=== PATIENT | male | born 1970 | race Caucasian/White ===

== ENCOUNTER 2016-06-11 15:36 | Emergency (ER) | payer OTHER ==
--- NOTE | 2016-06-11 16:20 | ED CLINICAL REPORT ---
Clinical Report - Physicians/Mid Levels Located Within [facility] [address] [place] [address] 06/11/2016 15:38 [id number] Time Seen: 15:49; upon arrival, initial patient contact, initial documentation, patient care assumed. Arrived- By private vehicle. Historian- patient. HISTORY OF PRESENT ILLNESS Chief Complaint: Injury to the left ring finger. The injury happened just prior to arrival. The patient sustained a burn (working on car, and battery zapped him, felt burn/shock go up arm threw rest of his body). Occurred at home. Patient is experiencing moderate pain. Patient denies injury to the head or neck. No other injury. REVIEW OF SYSTEMS No swelling, tingling, numbness, weakness or skin laceration. All systems otherwise negative, except as recorded above. PAST HISTORY See nurses notes. PROBLEMS: Shoulder pain. Neck Injury. Back Pain. --16:05 Anna Redd R.N. ADDITIONAL SURGERIES: Back Surgery. Neck Surgery. Shoulder Surgery. --16:05 Anna Redd R.N. The patient's dominant hand is the right. SOCIAL HISTORY Light tobacco smoker. History of occasional drug use: marijuana. Recently used drugs days ago. No alcohol use. No recent travel. Is a local resident. He lives with spouse. FAMILY HISTORY No significant family medical history. ADDITIONAL NOTES The nursing notes have been reviewed with agreement regarding the chief complaint, HPI, ROS, PMH and patient medications and allergies. PHYSICAL EXAM Vital Signs: 06/11/2016 16:00 BP: 157/97. HR: 68. RR: 20. O2 saturation: 100%. Temp: 98.7 F. Pain level now: 8/10. Have been reviewed as abnormal and appear to be correct. Hypertensive. Heart rate normal. Respiratory rate normal. Temperature normal. Oxygen saturation normal. Appearance: Alert. Oriented X3. No acute distress. Head: Head atraumatic. Eyes: Pupils equal, round and reactive to light. Eyes normal inspection. Neck: Normal inspection. Neck supple. C-spine non-tender. CVS: Normal heart rate and rhythm. Heart sounds normal. Pulses normal. Respiratory: No respiratory distress. Breath sounds normal. Chest nontender. Abdomen: No visible injury. Soft and nontender. Back: No tenderness. Normal inspection. ROM normal. Skin: Skin warm and dry. Skin intact. Extremities: Hand injury present. Left middle finger: moderate tenderness of the ulnar aspect and proximal phalanx. Neurovascular intact distally. (1/2 cm secondary degree burn with tiny blister noted to side of finger). No erythema, swelling, laceration, abrasion or ecchymosis. No puncture wound, foreign body or deformity. No limitation in movement. No subungual hematoma or amputation present. Left ring finger: mild tenderness of the dorsal aspect and proximal phalanx. Neurovascular intact distally. (small 1/2 cm blister noted to ring area of finger). No erythema, swelling, laceration, abrasion or ecchymosis. No puncture wound, foreign body or deformity. No limitation in movement. No subungual hematoma or amputation present. No wrist injury. Hand and wrist exam otherwise negative. Extremities otherwise negative. Neuro, Vascular and Tendons: Vascular status intact. Sensation intact. Motor intact. Tendon function intact. Neuro: Oriented X 3. No motor deficit. No sensory deficit. LABS, X-RAYS, AND EKG EKG: EKG time: (1616). No acute process. No acute ischemia. Normal EKG. Rate: 67. Normal. The study has been interpreted contemporaneously by me (and dr castillo). The EKG appears to be a good tracing. Interpretation time: 1616. PROGRESS AND PROCEDURES Course of Care: 16:26 06/11/16. nurse reporting pt has pain med at home. Patient and spouse counseled in person regarding the patient's stable condition, test results and diagnosis. 16:19. Differential Diagnosis: Other possible considerations: burn, electrocution, heart arrythmia. Above considerations are based on history, physical exam, reassessment and EKG. Differential diagnosis was discussed with patient and patient's spouse. Disposition: Discharged home in good and improved condition (16:19). Condition: good and stable. CLINICAL IMPRESSION Multiple second degree thermal quiñonez to the left middle finger and to the left ring finger. Treatment of burn not delayed. No burn with infection present or foreign body present. INSTRUCTIONS Warnings: GENERAL WARNINGS: Return or contact your physician immediately if your condition worsens or changes unexpectedly, if not improving as expected, or if other problems arise. Specifically return if problem worsens. Follow-up: Follow up with your doctor in three days as needed and for wound check. Call for an appointment. Summary of care provided to patient. Screening today revealed the patient's blood pressure to be in the hypertensive range. The patient should follow up with a primary care provider for blood pressure management. Understanding of the discharge instructions verbalized by patient. (Electronically signed by Jia Quintana A.R.N.P. 06/11/2016 20:21)
--- NOTE | 2016-06-11 16:20 | ED NURSING NOTES ---
Clinical Report - Nurses [facility] [address] [place] [address] 06/11/2016 15:38 Patient: GRACIELA CHA TRIAGE Triage time 1550. Acuity: LEVEL 3. Chief Complaint: BURN FROM ELECTRICAL SOURCE (Lt ring finger, had a ring on, ring is pitted.). Alert. No acute distress. SEPSIS SCREEN: Sepsis Screen: negative. Negative (no infection suspected/documented). --16:08 Anna Redd R.N. 16:00 06/11/16. BP: 157/97. HR: 68. RR: 20. O2 saturation: 100%. Temp: 98.7 F. Pain level now: 8. --16:08 Anna Redd R.N. 16:00 06/11/16. BP: 157/97. HR: 68. RR: 20. O2 saturation: 100%. Temp: 98.7 F. Pain level now: 8. --16:08 Anna Redd R.N. Weight: 68 kg stated. Height/Length: 69 inches Per Patient. BMI: 22.2. --16:07 Anna Redd R.N. Medications Oxycodone 30mg every 4 hrs prn . --16:02 Anna Redd R.N. Flexeril 10mg bid . --16:02 Anna Redd R.N. Sleeping pill at hs . --16:03 Anna Redd R.N. Medication/allergy information source: the patient. --16:08 Anna Redd R.N. Allergies No Known Drug Allergy. --16:03 Anna Redd R.N. History Arrived by private vehicle. Historian: patient and family. Primary physician (juju). This occurred just prior to arrival. ( pain 8/). Treatment HEALTH INFORMATION CLERK: None. Trauma activation: Pre-hospital notification of patient arrival was not received. PAST MEDICAL HX: Tetanus status: up-to-date. SOCIAL HX: Heavy tobacco smoker (cigarette)- less than 1 pack per day. History of drug use: marijuana. Recently used drugs days ago. No alcohol use. FALL RISK ASSESSMENT: Fall risk assessment completed. No fall risk identified. NUTRITIONAL RISK ASSESSMENT: The nutritional risk assessment revealed no deficiencies. FUNCTIONAL ASSESSMENT: Functional assessment: no impairments noted. LEARNING NEEDS ASSESSMENT: The learning needs assessment revealed no barriers. SKIN INTEGRITY ASSESSMENT: Skin integrity risk assessment completed. No skin integrity risk identified. --16:08 Anna Redd R.N. PROBLEMS: Shoulder pain. Neck Injury. Back Pain. --16:05 Anna Redd R.N. ADDITIONAL SURGERIES: Back Surgery. Neck Surgery. Shoulder Surgery. --16:05 Anna Redd R.N. Interventions ID band on patient. To room. --16:08 Anna Redd R.N. PHYSICAL ASSESSMENT Ambulatory to room. Patient gowned. GENERAL / NEURO / PSYCH: Alert. Oriented X 4. Appears in pain and anxious. HEENT: Voice within normal limits. RESPIRATORY: Respirations not labored. CVS: Capillary refill less than 2 seconds. GI / : Abdomen nontender. EXTREMITIES: ( lt 3rd and 4th finger with blister approximately 5-7 mm.). SKIN: Skin is warm and dry. He has a blister located left third finger and left fourth finger. --16:10 Anna Redd R.N. NURSING PROGRESS NOTES court recording monitor, pulse oximeter and NIBP monitor placed on patient; cardiac surgeon- Lead II; monitor alarms on. Cold pack applied. Extremity elevated. Patient gowned. Two patient identifiers checked. Call light placed in reach. Side rails up x 2. Patient placed in chair. Brakes of chair on. Patient ready for evaluation. --16:10 Anna Redd R.N. EKG time: (1616). EKG was ordered, performed by a tech and shown to the ED physician. --16:17 Kady Yanez ER Tech1 16:27 06/11/16. Burn cleansed with sterile saline by RN. Applied clean bulky dressing consisting of 4x4 gauze and telfa pad. Secured with tape and kerlix (Lidocaine jel.). --16:27 Anna Redd R.N. DISPOSITION / DISCHARGE Condition at departure: improved. No learning barriers present. Discharge instructions provided and reviewed with the patient and spouse. Reviewed wound care instructions. Patient and spouse verbalized understanding. Written instructions provided in Kyrgyz. The patient was discharged home and accompanied by spouse. He left the Emergency Department ambulatory and via private vehicle. Spouse driving. Medication list reviewed and validated. --16:39 Anna Redd R.N. 16:00 06/11/16. BP: 157/97. HR: 68. RR: 20. O2 saturation: 100%. Temp: 98.7 F. Pain level now: 10/30. --16:39 Anna Redd R.N. Locked/Released at 06/11/2016 16:39 by Anna Redd R.N.
--- NOTE | 2016-06-11 16:20 | ED ORDER SUMMARY ---
..... Patient: GRACIELA CHA OrderSheet [facility] VisitID: [id number] [address] [place] [address] 45y, M Registration Date/Time: 06/11/2016 ORDER SHEET Weight: 68.0 kg (stated) Allergies: No Known Drug Allergy GENERAL ORDERS: Manufacturing Finance Manager (Continuous) (15:57 06/11/2016 HBivens A.R.N.P.) (16:10 SRoberts R.N.) (Ack 16:12 Aide) EKG - ER Stat (15:57 06/11/2016 HBivens A.R.N.P.) (Ack 16:12 Aide) (16:17 LNations ER Tech1) MEDICATION ORDERS: Lidocaine Topical 1 application (NOW) (15:57 06/11/2016 HBivens A.R.N.P.) (Ack 16:11 SRoberts R.N.) Hydrocodone-APAP PO 5/325 mg (NOW, HIGH ALERT MEDICATION) (16:20 06/11/2016 HBivens A.R.N.P.) (Cancelled: Other16:25 HBivens A.R.N.P.) IV FLUIDS: ORDER SHEET NOTES: [Electronically signed by Anna Redd R.N. (16:39 06/11/2016)] [Electronically signed by Jia Quintana A.R.N.P. (20:21 06/11/2016)] [Electronically locked/signed by Anna Redd R.N. (16:39 06/11/2016)]
--- NOTE | 2016-06-11 16:20 | ED NURSING NOTES ---
Clinical Report - Nurses [facility] [address] [place] [address] 06/11/2016 15:38 Patient: GRACIELA CHA TRIAGE Triage time 1550. Acuity: LEVEL 3. Chief Complaint: BURN FROM ELECTRICAL SOURCE (Lt ring finger, had a ring on, ring is pitted.). Alert. No acute distress. SEPSIS SCREEN: Sepsis Screen: negative. Negative (no infection suspected/documented). --16:08 Anna Redd R.N. 16:00 06/11/16. BP: 157/97. HR: 68. RR: 20. O2 saturation: 100%. Temp: 98.7 F. Pain level now: 8. --16:08 Anna Redd R.N. 16:00 06/11/16. BP: 157/97. HR: 68. RR: 20. O2 saturation: 100%. Temp: 98.7 F. Pain level now: 8. --16:08 Anna Redd R.N. Weight: 68 kg stated. Height/Length: 69 inches Per Patient. BMI: 22.2. --16:07 Anna Redd R.N. Medications Oxycodone 30mg every 4 hrs prn . --16:02 Anna Redd R.N. Flexeril 10mg bid . --16:02 Anna Redd R.N. Sleeping pill at hs . --16:03 Anna Redd R.N. Medication/allergy information source: the patient. --16:08 Anna Redd R.N. Allergies No Known Drug Allergy. --16:03 Anna Redd R.N. History Arrived by private vehicle. Historian: patient and family. Primary physician (juju). This occurred just prior to arrival. ( pain 8/). Treatment CAMERA MAKER: None. Trauma activation: Pre-hospital notification of patient arrival was not received. PAST MEDICAL HX: Tetanus status: up-to-date. SOCIAL HX: Heavy tobacco smoker (cigarette)- less than 1 pack per day. History of drug use: marijuana. Recently used drugs days ago. No alcohol use. FALL RISK ASSESSMENT: Fall risk assessment completed. No fall risk identified. NUTRITIONAL RISK ASSESSMENT: The nutritional risk assessment revealed no deficiencies. FUNCTIONAL ASSESSMENT: Functional assessment: no impairments noted. LEARNING NEEDS ASSESSMENT: The learning needs assessment revealed no barriers. SKIN INTEGRITY ASSESSMENT: Skin integrity risk assessment completed. No skin integrity risk identified. --16:08 Anna Redd R.N. PROBLEMS: Shoulder pain. Neck Injury. Back Pain. --16:05 Anna Redd R.N. ADDITIONAL SURGERIES: Back Surgery. Neck Surgery. Shoulder Surgery. --16:05 Anna Redd R.N. Interventions ID band on patient. To room. --16:08 Anna Redd R.N. PHYSICAL ASSESSMENT Ambulatory to room. Patient gowned. GENERAL / NEURO / PSYCH: Alert. Oriented X 4. Appears in pain and anxious. HEENT: Voice within normal limits. RESPIRATORY: Respirations not labored. CVS: Capillary refill less than 2 seconds. GI / : Abdomen nontender. EXTREMITIES: ( lt 3rd and 4th finger with blister approximately 5-7 mm.). SKIN: Skin is warm and dry. He has a blister located left third finger and left fourth finger. --16:10 Anna Redd R.N. NURSING PROGRESS NOTES clinical research monitor, pulse oximeter and NIBP monitor placed on patient; monitor technician- Lead II; monitor alarms on. Cold pack applied. Extremity elevated. Patient gowned. Two patient identifiers checked. Call light placed in reach. Side rails up x 2. Patient placed in chair. Brakes of chair on. Patient ready for evaluation. --16:10 Anna Redd R.N. EKG time: (1616). EKG was ordered, performed by a tech and shown to the ED physician. --16:17 Kady Yanez ER Tech1 16:27 06/11/16. Burn cleansed with sterile saline by RN. Applied clean bulky dressing consisting of 4x4 gauze and telfa pad. Secured with tape and kerlix (Lidocaine jel.). --16:27 Anna Redd R.N. DISPOSITION / DISCHARGE Condition at departure: improved. No learning barriers present. Discharge instructions provided and reviewed with the patient and spouse. Reviewed wound care instructions. Patient and spouse verbalized understanding. Written instructions provided in Mexican. The patient was discharged home and accompanied by spouse. He left the Emergency Department ambulatory and via private vehicle. Spouse driving. Medication list reviewed and validated. --16:39 Anna Redd R.N. 16:00 06/11/16. BP: 157/97. HR: 68. RR: 20. O2 saturation: 100%. Temp: 98.7 F. Pain level now: 10/30. --16:39 Anna Redd R.N. Locked/Released at 06/11/2016 16:39 by Anna Redd R.N.
--- NOTE | 2016-06-11 16:20 | ED ORDER SUMMARY ---
..... Patient: GRACIELA CHA OrderSheet [facility] VisitID: [id number] [address] [place] [address] 45y, M Registration Date/Time: 06/11/2016 ORDER SHEET Weight: 68.0 kg (stated) Allergies: No Known Drug Allergy GENERAL ORDERS: Mine Geologist (Continuous) (15:57 06/11/2016 HBivens A.R.N.P.) (16:10 SRoberts R.N.) (Ack 16:12 Aide) EKG - ER Stat (15:57 06/11/2016 HBivens A.R.N.P.) (Ack 16:12 Aide) (16:17 LNations ER Tech1) MEDICATION ORDERS: Lidocaine Topical 1 application (NOW) (15:57 06/11/2016 HBivens A.R.N.P.) (Ack 16:11 SRoberts R.N.) Hydrocodone-APAP PO 5/325 mg (NOW, HIGH ALERT MEDICATION) (16:20 06/11/2016 HBivens A.R.N.P.) (Cancelled: Other16:25 HBivens A.R.N.P.) IV FLUIDS: ORDER SHEET NOTES: [Electronically signed by Anna Redd R.N. (16:39 06/11/2016)] [Electronically signed by Jia Quintana A.R.N.P. (20:21 06/11/2016)] [Electronically locked/signed by Anna Redd R.N. (16:39 06/11/2016)]
--- NOTE | 2016-06-11 20:21 | ED MED RECONCILIATION SUMMARY ---
Patient: GRACIELA CHA Medication Reconciliation Report [facility] VisitID: [id number] [address] [place] [address] 45y, M Registration Date/Time: 06/11/2016 Weight: 68.0 kg Height/Length: 69 in. BMI: 22.2 ALLERGIES: No Known Drug Allergy The patient's Home Medications are listed below: THE FOLLOWING MEDICATIONS NEED TO BE RECONCILED: Flexeril 10mg bid Oxycodone 30mg every 4 hrs prn Sleeping pill at hs The source(s) of the original Home Medication information: patient The following Medications were given to the patient in the Emergency Department: None. The following Medications were prescribed to the patient: None.
--- NOTE | 2016-06-11 20:21 | ED MAR SUMMARY ---
..... Medication Administration Record [facility] [address], [place] [id number] Patient: GRACIELA CHA Visit ID: [id number] 45y, M Weight: 68.0 kg Height/Length: 69 in BMI: 22.2 ALLERGIES: No Known Drug Allergy
--- NOTE | 2016-06-11 20:21 | ED DISCHARGE INSTRUCTIONS ---
Patient: GRACIELA CHA General Instructions [facility] VisitID: [id number] [address] [place] [address] 45y, M Registration Date/Time: 06/11/2016 Multiple second degree thermal quiñonez to the left middle finger and to the left ring finger. Treatment of burn not delayed. No burn with infection present or foreign body present. INSTRUCTIONS Warnings: GENERAL WARNINGS: Return or contact your physician immediately if your condition worsens or changes unexpectedly, if not improving as expected, or if other problems arise. Specifically return if problem worsens. Follow-up: Follow up with your doctor in three days as needed and for wound check. Call for an appointment. Summary of care provided to patient. Screening today revealed the patient's blood pressure to be in the hypertensive range. The patient should follow up with a primary care provider for blood pressure management. Understanding of the discharge instructions verbalized by patient. ADDITIONAL INFORMATION Quiñonez [1', 2', 3'] A burn occurs when skin is exposed to excessive heat, sun, or harsh chemicals. A first degree burn causes redness only, like a sunburn, and heals in a few days. A second degree burn is deeper and causes a blister to form. This may take up to two weeks to heal. A third degree burn damages all layers of the skin and is very serious. It may take a month or more to heal. Home Care On the first day, you may apply a cool compress (small towel soaked in cool water) to relieve severe pain. If a bandage was applied, change it once a day, unless told otherwise. If the bandage sticks, soak it off under warm running water. Before changing a bandage, wash your hands. Then, wash the area with soap and water to remove any cream, ointment, ooze or scab. You may do this in a sink, under a tub faucet or in the shower. Rinse off the soap and pat dry with a clean towel. Look for signs of infection listed below. Reapply any prescribed cream/ointment to prevent infection and keep the bandage from sticking. Cover the burn with a non-stick gauze. Then wrap it with the bandage material. If the bandage becomes wet or soiled, change it as soon as possible. Use acetaminophen (Tylenol) or ibuprofen (Motrin, Advil) to control pain, unless another pain medicine was prescribed. [NOTE: If you have chronic liver or kidney disease or ever had a stomach ulcer or GI bleeding, talk with your doctor before using these medications.] Follow Up with your doctor or as advised by our staff. Most quiñonez heal without infection. Occasionally, an infection may occur despite proper treatment. Therefore, check the burn daily for the signs of infection listed below. Get Prompt Medical Attention if any of the following signs of infection occur: Increasing pain in the wound Increasing redness, swelling or pus coming from the wound Red streaks in your skin coming from the burn Fever of 100.4 F (38 C) or higher, or as directed by your healthcare provider You have been given the following additional information: Burn, Thermal, (1'2'3') W/ Dressing (Electronically signed by Jia Quintana A.R.N.P. 06/11/2016 20:21)
--- NOTE | 2016-06-11 20:21 | ED MAR SUMMARY ---
..... Medication Administration Record [facility] [address] [place], [place] [id number] Patient: GRACIELA CHA Visit ID: [id number] 45y, M Weight: 68.0 kg Height/Length: 69 in BMI: 22.2 ALLERGIES: No Known Drug Allergy
--- NOTE | 2016-06-11 20:21 | ED MED RECONCILIATION SUMMARY ---
Patient: GRACIELA CHA Medication Reconciliation Report [facility] VisitID: [id number] [address] [place] [address] 45y, M Registration Date/Time: 06/11/2016 Weight: 68.0 kg Height/Length: 69 in. BMI: 22.2 ALLERGIES: No Known Drug Allergy The patient's Home Medications are listed below: THE FOLLOWING MEDICATIONS NEED TO BE RECONCILED: Flexeril 10mg bid Oxycodone 30mg every 4 hrs prn Sleeping pill at hs The source(s) of the original Home Medication information: patient The following Medications were given to the patient in the Emergency Department: None. The following Medications were prescribed to the patient: None.
== END 2016-06-11 16:30 | disposition home or self-care (01) ==
LOC: ED SRH 15:36
DX: T23.022A Burn of unspecified degree of single left finger (nail) except thumb, initial encounter (principal); W86.8XXA Exposure to other electric current, initial encounter; Y93.89 Activity, other specified; Y92.9 Unspecified place or not applicable; Y99.9 Unspecified external cause status; F17.210 Nicotine dependence, cigarettes, uncomplicated; Z79.899 Other long term (current) drug therapy; F12.10 Cannabis abuse, uncomplicated

== ENCOUNTER 2016-09-02 16:06 | Emergency (ER) | payer OTHER ==
--- NOTE | 2016-09-02 17:11 | ED CLINICAL REPORT ---
Clinical Report - Physicians/Mid Levels [facility]ly [facility] [address] [place] [address] 09/02/2016 16:07 Patient: GRACIELA CHA Time Seen: 1630; initial patient contact, initial documentation, patient care assumed. Arrived- By private vehicle. Historian- patient. HISTORY OF PRESENT ILLNESS Chief Complaint: Injury to the right middle finger. The injury happened just prior to arrival. Occurred at home. ( fish hook in finger, clean hook never used). Patient is experiencing moderate pain. Patient denies injury to the head or neck. No other injury. REVIEW OF SYSTEMS Foreign body is suspected. No swelling, tingling, numbness, weakness or skin laceration. All systems otherwise negative, except as recorded above. PAST HISTORY See nurses notes. PROBLEMS: Burn. Shoulder pain. Neck Injury. Back Pain. --16:27 Xiomy Owens. ADDITIONAL SURGERIES: Back Surgery. Neck Surgery. Shoulder Surgery. --16:27 Xiomy Owens. The patient's dominant hand is the right. Tetanus immunization status is unknown. SOCIAL HISTORY Heavy tobacco smoker. No alcohol use or drug use. No recent travel. Is a local resident. He lives with spouse. FAMILY HISTORY No significant family medical history. ADDITIONAL NOTES The nursing notes have been reviewed with agreement regarding the chief complaint, HPI, ROS, PMH and patient medications and allergies. PHYSICAL EXAM Vital Signs: 09/02/2016 16:29 BP: 147/74. HR: 63. RR: 17. O2 saturation: 100%. Temp: 98.4 F. Have been reviewed as normal and appear to be correct. Appearance: Alert. Oriented X3. No acute distress. Head: Head atraumatic. Eyes: Pupils equal, round and reactive to light. Eyes normal inspection. Respiratory: No respiratory distress. Skin: Skin warm and dry. Skin intact. Extremities: Hand injury present. Tip of right middle finger: moderate tenderness and visualized foreign body (fish hook hanging out of finger). No erythema, swelling, laceration of tip of right middle finger or puncture wound. No subungual hematoma, nail avulsion, exposed bone or loss of the nail bed on the right middle finger or tip amputation of the right middle finger. No wrist injury. Hand and wrist exam otherwise negative. Extremities otherwise negative. Neuro, Vascular and Tendons: Vascular status intact. Sensation intact. Motor intact. Tendon function intact. Neuro: Oriented X 3. No motor deficit. No sensory deficit. Note: isolated injury to finger. PROGRESS AND PROCEDURES Digital Nerve Block - Finger: Digital nerve block performed on the right middle finger. Web space, dorsal and volar approach utilized. Landmarks identified. Skin prepped. Total volume of 2 mL 2% Lidocaine and 0.5% Marcaine infiltrated via multiple punctures using a 27-gauge needle. Patient cooperative during procedure. No complications encountered. Excellent anesthesia achieved. Removal of Soft Tissue Foreign Body: The foreign body was metal and a fishhook. Located in the right hand and middle finger. Prior to the procedure the risks, benefits and alternatives to the procedure were explained and consent was obtained. Foreign body removed. removed using plain packing gauze and pull technique. The foreign body removed was subcutaneous. Dressing applied. Tetanus immunization given. Warnings provided. Course of Care: pt has damien for frequent large quantity of narcs, last rx 08/31 oxycodone 30mg #180, see report for full details. Patient and family counseled in person regarding the patient's stable condition and diagnosis. Differential Diagnosis: Other possible considerations: fb, cellulitis. Above considerations are based on history and physical exam. Differential diagnosis was discussed with patient and patient's family. Disposition: Discharged home in good and improved condition (17:02). Condition: good and stable. CLINICAL IMPRESSION Removal of superficial metal soft tissue foreign body to the right middle finger. Puncture wound present. No laceration or infection. INSTRUCTIONS Protect wound and keep wound area clean. Soak in warm soapy water twice daily. Apply neosporin twice daily. Warnings: TETANUS: You were given a tetanus shot during your visit. Make a note for future reference. Follow-up: Follow up with your doctor in about three days as needed and for wound check. Call for an appointment. Summary of care provided to patient. Understanding of the discharge instructions verbalized by patient. (Electronically signed by Jia Quintana A.R.N.P. 09/02/2016 17:59)
--- NOTE | 2016-09-02 17:11 | ED ORDER SUMMARY ---
..... Patient: GRACIELA CHA OrderSheet [facility] VisitID: [id number] [address] [place] [address] 45y, M Registration Date/Time: 09/02/2016 ORDER SHEET Weight: 65.7 kg (stated) Allergies: No Known Drug Allergy GENERAL ORDERS: MEDICATION ORDERS: Tdap IM 0.5 mL (NOW, per protocol) (16:34 09/02/2016 ASchmsharri per protocol) (16:35 ASchmuck) IV FLUIDS: ORDER SHEET NOTES: [Electronically signed by Xiomy Owens (17:12 09/02/2016)] [Electronically signed by Jia Quintana (17:59 09/02/2016)] [Electronically locked/signed by Xiomy Owens (17:12 09/02/2016)]
--- NOTE | 2016-09-02 17:11 | ED ORDER SUMMARY ---
..... Patient: GRACIELA CHA OrderSheet [facility] VisitID: [id number] [address] [place] [address] 45y, M Registration Date/Time: 09/02/2016 ORDER SHEET Weight: 65.7 kg (stated) Allergies: No Known Drug Allergy GENERAL ORDERS: MEDICATION ORDERS: Tdap IM 0.5 mL (NOW, per protocol) (16:34 09/02/2016 ASchmsharri per protocol) (16:35 ASchmuck) IV FLUIDS: ORDER SHEET NOTES: [Electronically signed by Xiomy Owens (17:12 09/02/2016)] [Electronically signed by Jia Quintana (17:59 09/02/2016)] [Electronically locked/signed by Xiomy Owens (17:12 09/02/2016)]
--- NOTE | 2016-09-02 17:11 | ED NURSING NOTES ---
Clinical Report - Nurses [facility] [address] [place] [address] 09/02/2016 16:07 [id number] TRI[facility] Triage time 16:25 Sep 02 2016. Acuity: LEVEL 4. Chief Complaint: INJURY TO RIGHT HAND. 16:29 09/02/16. Alert. No acute distress. SEPSIS SCREEN: Sepsis Screen. Negative (no infection suspected/documented). SUKH COMA SCORE: Sukh Coma Scale: 15- eyes open spontaneously (4); best verbal response- oriented x 4 (5); best motor response- obeys commands (6). --16:29 Xiomy Owens 16:29 09/02/16. BP: 147/74. HR: 63. RR: 17. O2 saturation: 100%. Temp: 98.4 F. Pain level now 04/01. --16:29 Xiomy Owens. Weight: 65.7 kg stated. Height/Length: 68 inches Per Patient. BMI: 22. --16:29 Xiomy Owens. Medications Flexeril 10mg bid . Oxycodone 30mg every 4 hrs prn . Sleeping pill at hs . --16:26 Xiomy Owens. Medication/allergy information source: the patient. --16:29 Xiomy Owens. Allergies No Known Drug Allergy. --16:26 Xiomy Owens. History Arrived by private vehicle. Historian: patient. Accompanied by family. Primary physician (Glen Mixon). This occurred just prior to arrival. Occurred at [place]. ( Pt reports clean fish hook through middle finger.). No neck pain or numbness. Treatment ASSISTANT WOMEN'S SOCCER COACH: None. PAST MEDICAL HX: Tetanus status: more than 5 years ago. SOCIAL HX: Heavy tobacco smoker (cigarette)- 1 pack per day. No alcohol use or drug use. FALL RISK ASSESSMENT: Fall risk assessment completed. No fall risk identified. NUTRITIONAL RISK ASSESSMENT: The nutritional risk assessment revealed no deficiencies. FUNCTIONAL ASSESSMENT: Functional assessment: no impairments noted. LEARNING NEEDS ASSESSMENT: The learning needs assessment revealed no barriers. SKIN INTEGRITY ASSESSMENT: Skin integrity risk assessment completed. No skin integrity risk identified. --16:29 Xiomy Owens. PROBLEMS: Burn. Shoulder pain. Neck Injury. Back Pain. --16:27 Xiomy Owens. ADDITIONAL SURGERIES: Back Surgery. Neck Surgery. Shoulder Surgery. --16:27 Xiomy Owens. Assessment The patient states feels the same. --16:29 Xiomy Owens. Interventions ID band on patient. --16:29 Xiomy Owens. PHYSICAL ASSESSMENT 16:09/02/16. Ambulatory to room. GENERAL / NEURO / PSYCH: Oriented X 4. Alert. Appears in no acute distress. EXTREMITIES: Capillary refill is less than 2 seconds in the extremities. Extremity pulses are within normal limits. Extremities exhibit normal ROM. Tip of right middle finger: (hook in finger). SKIN: Skin is warm and dry. No bleeding. --16:29 Xiomy Owens. NURSING PROGRESS NOTES 16:09/02/16. The plan of care for this patient has been created. Neuro-vascular extremity check. Reassurance given. Two patient identifiers checked. Call light placed in reach. Side rails up x 1. Bed placed in lowest position. Brakes of bed on. Patient ready for evaluation- chart flagged and ED physician and ACCOUNT UNDERWRITER notified. --16:30 Xiomy Owens 16:35 09/02/2016 TDAP IM 0.5 mL given. (Lot#: [id number], expiration date: 07/31/2018, Forest Resource Specialist: sanofi pasteur). Given in the right deltoid. Allergies verified and confirmed 5 rights. Vaccine information statement provided to the patient. --16:35 Xiomy Owens 17:01 09/02/16. Applied dressing consisting of Band-Aid. --17:12 Xiomy Owens. DISPOSITION / DISCHARGE 17:09/02/16. Departure time: :Sep 02 2016. Condition at departure: improved. The goals identified in the patient's plan of care were met. No learning barriers present. Discharge instructions provided and reviewed with the patient. Reviewed warnings. Reviewed referrals. Patient verbalized understanding. Written instructions provided in [place]ian. The patient was discharged by the nurse practitioner. He was discharged home and accompanied by family. He left the Emergency Department ambulatory and via private vehicle. Family member driving. FALL RISK ASSESSMENT: Fall risk assessment completed. No fall risk identified. --17:10 Xiomy Owens 17:06 09/02/16. BP: deferred. HR: deferred. RR: deferred. O2 saturation: deferred. Temp: deferred. Pain level now deferred. --17:10 Xiomy Owens. Locked/Released at 09/02/2016 17:12 by Xiomy Owens,
--- NOTE | 2016-09-02 17:11 | ED NURSING NOTES ---
Clinical Report - Nurses [facility] [address] [place] [address] 09/02/2016 16:07 [id number] TRI[facility] Triage time 16:25 Sep 02 2016. Acuity: LEVEL 4. Chief Complaint: INJURY TO RIGHT HAND. 16:29 09/02/16. Alert. No acute distress. SEPSIS SCREEN: Sepsis Screen. Negative (no infection suspected/documented). SUKH COMA SCORE: Sukh Coma Scale: 15- eyes open spontaneously (4); best verbal response- oriented x 4 (5); best motor response- obeys commands (6). --16:29 Xiomy Owens 16:29 09/02/16. BP: 147/74. HR: 63. RR: 17. O2 saturation: 100%. Temp: 98.4 F. Pain level now 04/01. --16:29 Xiomy Owens. Weight: 65.7 kg stated. Height/Length: 68 inches Per Patient. BMI: 22. --16:29 Xiomy Owens. Medications Flexeril 10mg bid . Oxycodone 30mg every 4 hrs prn . Sleeping pill at hs . --16:26 Xiomy Owens. Medication/allergy information source: the patient. --16:29 Xiomy Owens. Allergies No Known Drug Allergy. --16:26 Xiomy Owens. History Arrived by private vehicle. Historian: patient. Accompanied by family. Primary physician (Glen Mixon). This occurred just prior to arrival. Occurred at the [place]. ( Pt reports clean fish hook through middle finger.). No neck pain or numbness. Treatment ECG TECHNICIAN: None. PAST MEDICAL HX: Tetanus status: more than 5 years ago. SOCIAL HX: Heavy tobacco smoker (cigarette)- 1 pack per day. No alcohol use or drug use. FALL RISK ASSESSMENT: Fall risk assessment completed. No fall risk identified. NUTRITIONAL RISK ASSESSMENT: The nutritional risk assessment revealed no deficiencies. FUNCTIONAL ASSESSMENT: Functional assessment: no impairments noted. LEARNING NEEDS ASSESSMENT: The learning needs assessment revealed no barriers. SKIN INTEGRITY ASSESSMENT: Skin integrity risk assessment completed. No skin integrity risk identified. --16:29 Xiomy Owens. PROBLEMS: Burn. Shoulder pain. Neck Injury. Back Pain. --16:27 Xiomy Owens. ADDITIONAL SURGERIES: Back Surgery. Neck Surgery. Shoulder Surgery. --16:27 Xiomy Owens. Assessment The patient states feels the same. --16:29 Xiomy Owens. Interventions ID band on patient. --16:29 Xiomy Owens. PHYSICAL ASSESSMENT 16:09/02/16. Ambulatory to room. GENERAL / NEURO / PSYCH: Oriented X 4. Alert. Appears in no acute distress. EXTREMITIES: Capillary refill is less than 2 seconds in the extremities. Extremity pulses are within normal limits. Extremities exhibit normal ROM. Tip of right middle finger: (hook in finger). SKIN: Skin is warm and dry. No bleeding. --16:29 Xiomy Owens. NURSING PROGRESS NOTES 16:09/02/16. The plan of care for this patient has been created. Neuro-vascular extremity check. Reassurance given. Two patient identifiers checked. Call light placed in reach. Side rails up x 1. Bed placed in lowest position. Brakes of bed on. Patient ready for evaluation- chart flagged and ED physician and TERRAZZO WORKER APPRENTICE notified. --16:30 Xiomy Owens 16:35 09/02/2016 TDAP IM 0.5 mL given. (Lot#: [id number], expiration date: 07/31/2018, Early Childhood Teacher Assistant: sanofi pasteur). Given in the right deltoid. Allergies verified and confirmed 5 rights. Vaccine information statement provided to the patient. --16:35 Xiomy Owens 17:01 09/02/16. Applied dressing consisting of Band-Aid. --17:12 Xiomy Owens. DISPOSITION / DISCHARGE 17:09/02/16. Departure time: :Sep 02 2016. Condition at departure: improved. The goals identified in the patient's plan of care were met. No learning barriers present. Discharge instructions provided and reviewed with the patient. Reviewed warnings. Reviewed referrals. Patient verbalized understanding. Written instructions provided in [place]i. The patient was discharged by the nurse practitioner. He was discharged home and accompanied by family. He left the Emergency Department ambulatory and via private vehicle. Family member driving. FALL RISK ASSESSMENT: Fall risk assessment completed. No fall risk identified. --17:10 Xiomy Owens 17:06 09/02/16. BP: deferred. HR: deferred. RR: deferred. O2 saturation: deferred. Temp: deferred. Pain level now deferred. --17:10 Xiomy Owens. Locked/Released at 09/02/2016 17:12 by Xiomy Owens,
--- NOTE | 2016-09-02 17:59 | ED MAR SUMMARY ---
..... Medication Administration Record [facility] [address] [place] [address] Patient: GRACIELA CHA Visit ID: [id number] 45y, M Weight: 65.7 kg Height/Length: 68 in BMI: 22 ALLERGIES: No Known Drug Allergy Given 16:35 09/02/2016 Xiomy Owens, Medication Administered: TDAP [IM], Dose: 0.5 mL IM. Medication Ordered: Tdap IM 0.5 mL (NOW, per protocol).
--- NOTE | 2016-09-02 17:59 | ED DISCHARGE INSTRUCTIONS ---
Patient: GRACIELA CHA General Instructions [facility] VisitID: [id number] [place] [address] 45y, M Registration Date/Time: 09/02/2016 Removal of superficial metal soft tissue foreign body to the right middle finger. Puncture wound present. No laceration or infection. INSTRUCTIONS Protect wound and keep wound area clean. Soak in warm soapy water twice daily. Apply neosporin twice daily. Warnings: TETANUS: You were given a tetanus shot during your visit. Make a note for future reference. Follow-up: Follow up with your doctor in about three days as needed and for wound check. Call for an appointment. Summary of care provided to patient. Understanding of the discharge instructions verbalized by patient. ADDITIONAL INFORMATION Foreign ObjectUnder The Skin, Removed An object has been removed from under your skin. Although care was taken to remove all particles present, there is always a chance that a small piece may have been left behind. Very small particles that remain under the skin usually cause no problem and need no further treatment. Home care The following guidelines will help you care for your wound at home: Keep the wound clean and dry. If a bandage was applied and it becomes wet or dirty, replace it. Otherwise, leave it in place for the first 24 hours, then change it once a day or as directed. Ifsutureswere used, clean the wound daily: After removing the bandage, wash the area with soap and water. After cleaning, apply a thin layer of antibiotic ointment. This will keep the wound clean and make it easier to remove the stitches. Reapply the bandage. You may shower as usual after the first 24 hours, but do not soak the area in water (no baths or swimming) until the sutures are removed. If asurgical tape closureswere used, keep the area clean and dry. If it becomes wet, blot it dry with a towel. You may use acetaminophen or ibuprofen to control pain, unless another pain medicine was prescribed.If you have chronic liver or kidney disease or ever had a stomach ulcer or GI bleeding, talk with your doctor before using these medicines. Follow-up care Most skin wounds heal within ten days. However, there is an increased risk of infection if there is any particle remaining under the skin. Therefore, check the wound daily for the signs listed below. Stitches should be removed within 714 days. If surgical tape closures were used, remove them after seven days unless told otherwise. Note:Any X-rays taken will be reviewed by a radiologist. You will be notified if there are new findings that may affect your care. When to seek medical care Get prompt medical attention if any of the following occur: Increasing pain in the wound Redness, swelling or pus coming from the wound Fever of 100.4F (38C) or higher, or as directed by your health care provider Diphtheria Toxoid Adsorbed, Pertussis Vaccine, Acellular (Adsorbed), Tetanus Toxoid, Adsorbed Suspension for injection What is this medicine? DIPHTHERIA and TETANUS TOXOIDS; PERTUSSIS VACCINE (dif THEER ee uh and TET n us TOK soids; per TUCarmen francisco SEEN) is used to prevent diphtheria, tetanus, and pertussis infections. How should I use this medicine? This vaccine is for injection into a muscle. It is given by a health plant care worker. A copy of Vaccine Information Statements will be given before each vaccination. Read this sheet carefully each time. The sheet may change frequently. Talk to your dope maintenance worker regarding the use of this vaccine in children. While the DTP vaccine may be given to children ages 6 weeks to 7 years and the Tdap vaccine may be given to children at least 10 years old, precautions do apply. What side effects may I notice from receiving this medicine? Side effects that you should report to your doctor or health plant care worker as soon as possible: allergic reactions like skin rash, itching or hives, swelling of the face, lips, or tongue breathing problems fever of 103 degrees F or more flu-like symptoms inconsolable crying infection pain, tingling, numbness in the hands or feet seizures swelling of arm or leg that was injected unusually weak or tired Side effects that usually do not require immediate medical attention (report these side effects to your doctor or health plant care worker if they continue or are bothersome): fussy, irritable loss of appetite fever of 102 degrees F or less pain, tenderness, redness, swelling, or a 'knot' at site where injected vomiting What may interact with this medicine? immune globulin medicines that suppress your immune function like adalimumab, anakinra, infliximab medicines to treat cancer medicines that treat or prevent blood clots like warfarin, enoxaparin, and dalteparin steroid medicines like prednisone or cortisone What if I miss a dose? It is important not to miss your dose. Call your doctor or health plant care worker if you are unable to keep an appointment. Where should I keep my medicine? This drug is given in a hospital or clinic and will not be stored at home. What should I tell my health care provider before I take this medicine? They need to know if you have any of these conditions: blood disorders like hemophilia fever or infection immune system problems neurologic disease seizures an unusual or allergic reaction to vaccines, thimerosal, latex, other medicines, foods, dyes, or preservatives or trying to get breast-feeding What should I watch for while using this medicine? See your health care provider for all shots of this vaccine as directed. To have protection from infection, you must have 3 shots of this vaccine plus boosters as needed. Tell your doctor right away if you have any serious or unusual side effects after getting this vaccine. You have been given the following additional information: Foreign Body, Soft Tissue (Removed) Diphtheria Toxoid Adsorbed, Pertussis Vaccine, Acellular (Adsorbed), Tetanus Toxoid, Adsorbed Suspension for injection (Electronically signed by Jia Quintana A.R.N.P. 09/02/2016 17:59)
--- NOTE | 2016-09-02 17:59 | ED MAR SUMMARY ---
..... Medication Administration Record [facility] [address] [place] [address] Patient: GRACIELA CAH Visit ID: [id number] 45y, M Weight: 65.7 kg Height/Length: 68 in BMI: 22 ALLERGIES: No Known Drug Allergy Given 16:35 09/02/2016 Xiomy Owens, Medication Administered: TDAP [IM], Dose: 0.5 mL IM. Medication Ordered: Tdap IM 0.5 mL (NOW, per protocol).
--- NOTE | 2016-09-02 17:59 | ED DISCHARGE INSTRUCTIONS ---
Patient: GRACIELA CHA General Instructions [facility] VisitID: [id number] [place] [address] 45y, M Registration Date/Time: 09/02/2016 Removal of superficial metal soft tissue foreign body to the right middle finger. Puncture wound present. No laceration or infection. INSTRUCTIONS Protect wound and keep wound area clean. Soak in warm soapy water twice daily. Apply neosporin twice daily. Warnings: TETANUS: You were given a tetanus shot during your visit. Make a note for future reference. Follow-up: Follow up with your doctor in about three days as needed and for wound check. Call for an appointment. Summary of care provided to patient. Understanding of the discharge instructions verbalized by patient. ADDITIONAL INFORMATION Foreign ObjectUnder The Skin, Removed An object has been removed from under your skin. Although care was taken to remove all particles present, there is always a chance that a small piece may have been left behind. Very small particles that remain under the skin usually cause no problem and need no further treatment. Home care The following guidelines will help you care for your wound at home: Keep the wound clean and dry. If a bandage was applied and it becomes wet or dirty, replace it. Otherwise, leave it in place for the first 24 hours, then change it once a day or as directed. Ifsutureswere used, clean the wound daily: After removing the bandage, wash the area with soap and water. After cleaning, apply a thin layer of antibiotic ointment. This will keep the wound clean and make it easier to remove the stitches. Reapply the bandage. You may shower as usual after the first 24 hours, but do not soak the area in water (no baths or swimming) until the sutures are removed. If asurgical tape closureswere used, keep the area clean and dry. If it becomes wet, blot it dry with a towel. You may use acetaminophen or ibuprofen to control pain, unless another pain medicine was prescribed.If you have chronic liver or kidney disease or ever had a stomach ulcer or GI bleeding, talk with your doctor before using these medicines. Follow-up care Most skin wounds heal within ten days. However, there is an increased risk of infection if there is any particle remaining under the skin. Therefore, check the wound daily for the signs listed below. Stitches should be removed within 714 days. If surgical tape closures were used, remove them after seven days unless told otherwise. Note:Any X-rays taken will be reviewed by a radiologist. You will be notified if there are new findings that may affect your care. When to seek medical care Get prompt medical attention if any of the following occur: Increasing pain in the wound Redness, swelling or pus coming from the wound Fever of 100.4F (38C) or higher, or as directed by your health care provider Diphtheria Toxoid Adsorbed, Pertussis Vaccine, Acellular (Adsorbed), Tetanus Toxoid, Adsorbed Suspension for injection What is this medicine? DIPHTHERIA and TETANUS TOXOIDS; PERTUSSIS VACCINE (dif THEER ee uh and TET n us TOK soids; per TUCarmen francisco SEEN) is used to prevent diphtheria, tetanus, and pertussis infections. How should I use this medicine? This vaccine is for injection into a muscle. It is given by a health health care consultant. A copy of Vaccine Information Statements will be given before each vaccination. Read this sheet carefully each time. The sheet may change frequently. Talk to your real estate sales associate regarding the use of this vaccine in children. While the DTP vaccine may be given to children ages 6 weeks to 7 years and the Tdap vaccine may be given to children at least 10 years old, precautions do apply. What side effects may I notice from receiving this medicine? Side effects that you should report to your doctor or health health care consultant as soon as possible: allergic reactions like skin rash, itching or hives, swelling of the face, lips, or tongue breathing problems fever of 103 degrees F or more flu-like symptoms inconsolable crying infection pain, tingling, numbness in the hands or feet seizures swelling of arm or leg that was injected unusually weak or tired Side effects that usually do not require immediate medical attention (report these side effects to your doctor or health health care consultant if they continue or are bothersome): fussy, irritable loss of appetite fever of 102 degrees F or less pain, tenderness, redness, swelling, or a 'knot' at site where injected vomiting What may interact with this medicine? immune globulin medicines that suppress your immune function like adalimumab, anakinra, infliximab medicines to treat cancer medicines that treat or prevent blood clots like warfarin, enoxaparin, and dalteparin steroid medicines like prednisone or cortisone What if I miss a dose? It is important not to miss your dose. Call your doctor or health health care consultant if you are unable to keep an appointment. Where should I keep my medicine? This drug is given in a hospital or clinic and will not be stored at home. What should I tell my health care provider before I take this medicine? They need to know if you have any of these conditions: blood disorders like hemophilia fever or infection immune system problems neurologic disease seizures an unusual or allergic reaction to vaccines, thimerosal, latex, other medicines, foods, dyes, or preservatives or trying to get breast-feeding What should I watch for while using this medicine? See your health care provider for all shots of this vaccine as directed. To have protection from infection, you must have 3 shots of this vaccine plus boosters as needed. Tell your doctor right away if you have any serious or unusual side effects after getting this vaccine. You have been given the following additional information: Foreign Body, Soft Tissue (Removed) Diphtheria Toxoid Adsorbed, Pertussis Vaccine, Acellular (Adsorbed), Tetanus Toxoid, Adsorbed Suspension for injection (Electronically signed by Jia Quintana A.R.N.P. 09/02/2016 17:59)
--- NOTE | 2016-09-02 17:59 | ED MED RECONCILIATION SUMMARY ---
Patient: GRACIELA CHA Medication Reconciliation Report [facility] VisitID: [id number] [address] [place] [address] 45y, M Registration Date/Time: 09/02/2016 Weight: 65.7 kg Height/Length: 68 in. BMI: 22.0 ALLERGIES: No Known Drug Allergy The patient's Home Medications are listed below: THE FOLLOWING MEDICATIONS NEED TO BE RECONCILED: Flexeril 10mg bid Oxycodone 30mg every 4 hrs prn Sleeping pill at hs The source(s) of the original Home Medication information: patient The following Medications were given to the patient in the Emergency Department: TDAP [IM] IM 0.5 mL, administered: 09/02/2016 4:35:00 PM The following Medications were prescribed to the patient: None.
--- NOTE | 2016-09-02 17:59 | ED MED RECONCILIATION SUMMARY ---
Patient: GRACIELA CHA Medication Reconciliation Report [facility] VisitID: [id number] [address] [place] [address] 45y, M Registration Date/Time: 09/02/2016 Weight: 65.7 kg Height/Length: 68 in. BMI: 22.0 ALLERGIES: No Known Drug Allergy The patient's Home Medications are listed below: THE FOLLOWING MEDICATIONS NEED TO BE RECONCILED: Flexeril 10mg bid Oxycodone 30mg every 4 hrs prn Sleeping pill at hs The source(s) of the original Home Medication information: patient The following Medications were given to the patient in the Emergency Department: TDAP [IM] IM 0.5 mL, administered: 09/02/2016 4:35:00 PM The following Medications were prescribed to the patient: None.
== END 2016-09-02 17:06 | disposition home or self-care (01) ==
LOC: ED SRH 16:06
DX: S61.242A Puncture wound with foreign body of right middle finger without damage to nail, initial encounter (principal); W45.8XXA Other foreign body or object entering through skin, initial encounter; Y93.89 Activity, other specified; Y92.019 Unspecified place in single-family (private) house as the place of occurrence of the external cause; Y99.8 Other external cause status; Z23 Encounter for immunization; Z79.899 Other long term (current) drug therapy; F17.210 Nicotine dependence, cigarettes, uncomplicated